=== PATIENT | male | born 1965 | race Caucasian/White ===

== ENCOUNTER 2017-01-12 20:01 | Emergency (ER) | payer SELFPAY ==
[2017-01-12 20:14] VITALS: BP 126/88; PULSE 82; RESP 18; TEMP 98.4; O2SAT 94
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
== END 2017-01-12 20:26 | disposition home or self-care (01) ==
DX: S50.311A Abrasion of right elbow, initial encounter (principal); F10.120 Alcohol abuse with intoxication, uncomplicated; F17.200 Nicotine dependence, unspecified, uncomplicated; Y08.89XA Assault by other specified means, initial encounter; Y92.59 Other trade areas as the place of occurrence of the external cause